=== PATIENT | female | born 1980 | race Caucasian/White ===

== ENCOUNTER 2019-03-10 20:25 | Emergency (ER) | payer SELFPAY ==
[~2019-03-10] VITALS: Ht 167 cm; Wt 74.0 kg
[~2019-03-10 20:25] MED LIST: HYDR-3454 PO
--- NOTE | 2019-03-10 20:39 | ED Psychosocial ---
General Stated Complaint: MENTAL HEALTH EVAL Source: patient Exam Limitations: no limitations History of Present Illness Date Seen by Provider: Mar 10, 2019 Time Seen by Provider: 20:25 Initial Comments The patient is a 39-year-old female who presents for evaluation of depression and feeling overwhelmed. She states that she has 2 children age 16 and 9 were being watched by her aunt area she states that her left her today. She says that she has a history of depression and years ago was prescribed Prozac but could not tolerate the medication and stopped taking it and never saw another physician about it. She says that life has been overwhelming lately and she is had a lot of anxiety and depression. She has been having suicidal thoughts but has no specific plan. She denies any homicidal thoughts. She is alert and oriented 4, appears anxious and tearful, but is in no distress at this time. She mentions that after her left she was having a small amount chest discomfort but that has gone away now. She denies taking any current prescription medications and also denies any previous suicide attempts or psyc hiatric admission. Timing/Duration: just prior to arrival Severity: moderate Associated Symptoms: suicidal ideation Allergies and Home Medications Allergies Coded Allergies: Sulfa (Sulfonamide Antibiotics) (Unverified Allergy, Unknown, HIVES, 03/15/14) Home Medications Hydrocodone Bit/Acetaminophen 1 Each Tablet, 1 TAB PO Q4H PRN for PAIN Prescribed by: TREVOR ANGUIANO on 03/22/14 1107 Patient Home Medication List Home Medication List Reviewed: Yes Review of Systems Constitutional: no symptoms reported EENTM: no symptoms reported Respiratory: no symptoms reported Cardiovascular: chest pain (cp earlier, none currently) Gastrointestinal: no symptoms reported Genitourinary: no symptoms reported : No Musculoskeletal: no symptoms reported Skin: no symptoms reported Psychiatric/Neurological: Anxiety, Depressed All Other Systems Reviewed Negative Unless Noted: Yes Past Mbzwkjy-Qttcsp-Doannz Hx Past Med/Social Hx: Reviewed Nursing Past Med/Soc Hx Patient Social History Recent Foreign Travel: No Contact w/Someone Who Travel: No Physical Exam Vital Signs - First Documented 03/10/19 20:30 Temp 36.9 Pulse 88 Resp 20 B/P (MAP) 141/77 (98) Pulse Ox 100 O2 Delivery Room Air Capillary Refill : Height, Weight, BMI Height: 5'7.00" Weight: 160lbs. oz. 72.882796tm; BMI Method: General Appearance: WD/WN, no apparent distress, other (appears anxious, tearful) HEENT: PERRL/EOMI, normal ENT inspection Neck: non-tender, full range of motion, normal inspection Respiratory: lungs clear, normal breath sounds, no respiratory distress, no accessory muscle use Cardiovascular: regular rate, rhythm, no edema, no JVD Gastrointestinal: normal bowel sounds, non tender, soft Extremities: normal range of motion, non-tender, no pedal edema Neurologic/Psychiatric: compliance review officer II-XII nml as tested, no motor/sensory deficits, alert, normal mood/affect, oriented x 3 Behavior/Eye Contact: good eye contact Skin: normal color, warm/dry Progress/Results/Core Measures Results/Orders Lab Results Laboratory Tests Test 03/10/19 20:40 03/10/19 20:45 Range/Units White Blood Count 5.5 4.3-11.0 10^3/uL Red Blood Count 4.83 4.35-5.85 10^6/uL Hemoglobin 10.2 L 11.5-16.0 G/DL Hematocrit 34 L 35-52 % Mean Corpuscular Volume 70 L 80-99 FL Mean Corpuscular Hemoglobin 21 L 25-34 PG Mean Corpuscular Hemoglobin Concent 30 L 32-36 G/DL Red Cell Distribution Width 18.2 H 10.0-14.5 % Platelet Count 151 130-400 10^3/uL Mean Platelet Volume 7.4-10.4 FL Neutrophils (%) (Auto) 63 42-75 % Lymphocytes (%) (Auto) 29 12-44 % Monocytes (%) (Auto) 7 0-12 % Eosinophils (%) (Auto) 1 0-10 % Basophils (%) (Auto) 0 0-10 % Neutrophils # (Auto) 3.5 1.8-7.8 X 10^3 Lymphocytes # (Auto) 1.6 1.0-4.0 X 10^3 Monocytes # (Auto) 0.4 0.0-1.0 X 10^3 Eosinophils # (Auto) 0.0 0.0-0.3 10^3/uL Basophils # (Auto) 0.0 0.0-0.1 10^3/uL Sodium Level 135 135-145 MMOL/L Potassium Level 3.4 L 3.6-5.0 MMOL/L Chloride Level 97 L 98-107 MMOL/L Carbon Dioxide Level 23 21-32 MMOL/L Anion Gap 15 H 5-14 MMOL/L Blood Urea Nitrogen 5 L 7-18 MG/DL Creatinine 0.70 0.60-1.30 MG/DL Estimat Glomerular Filtration Rate > 60 BUN/Creatinine Ratio 7 Glucose Level 101 70-105 MG/DL Calcium Level 9.1 8.5-10.1 MG/DL Corrected Calcium 8.7 8.5-10.1 MG/DL Total Bilirubin 0.5 0.1-1.0 MG/DL Aspartate Amino Transf (AST/SGOT) 15 5-34 U/L Alanine Aminotransferase (ALT/SGPT) 9 0-55 U/L Alkaline Phosphatase 111 40-136 U/L Total Protein 8.1 6.4-8.2 GM/DL Albumin 4.5 3.2-4.5 GM/DL Salicylates Level < 0.3 L 5.0-20.0 MG/DL Acetaminophen Level < 10 L 10-30 UG/ML Serum Alcohol < 10 <10 MG/DL Urine Color YELLOW Urine Clarity CLOUDY Urine pH 6.0 5-9 Urine Specific Earling 1.025 H 1.016-1.022 Urine Protein NEGATIVE NEGATIVE Urine Glucose (UA) NEGATIVE NEGATIVE Urine Ketones NEGATIVE NEGATIVE Urine Nitrite NEGATIVE NEGATIVE Urine Bilirubin 1+ H NEGATIVE Urine Urobilinogen 1.0 NORMAL MG/DL Urine Leukocyte Esterase 2+ H NEGATIVE Urine RBC (Auto) NEGATIVE NEGATIVE Urine RBC NONE /HPF Urine WBC 10-25 H /HPF Urine Squamous Epithelial Cells 10-25 H /HPF Urine Crystals NONE /LPF Urine Bacteria MODERATE H /HPF Urine Casts NONE /LPF Urine Mucus NONE /LPF Urine Trichomonas FEW H /HPF Urine Culture Indicated YES Urine Test NEGATIVE NEGATIVE Urine Opiates Screen NEGATIVE NEGATIVE Urine Oxycodone Screen NEGATIVE NEGATIVE Urine Methadone Screen NEGATIVE NEGATIVE Urine Propoxyphene Screen NEGATIVE NEGATIVE Urine Barbiturates Screen NEGATIVE NEGATIVE Ur Tricyclic Antidepressants Screen NEGATIVE NEGATIVE Urine Phencyclidine Screen NEGATIVE NEGATIVE Urine Amphetamines Screen NEGATIVE NEGATIVE Urine Methamphetamines Screen NEGATIVE NEGATIVE Urine Benzodiazepines Screen NEGATIVE NEGATIVE Urine Cocaine Screen NEGATIVE NEGATIVE Urine Cannabinoids Screen POSITIVE H NEGATIVE My Orders Orders - WOJCIECH GAO DO Ua Culture If Indicated (03/10/19 20:30) Cbc With Automated Diff (03/10/19 20:30) Comprehensive Metabolic Panel (03/10/19 20:30) Alcohol (03/10/19 20:30) Drug Screen Stat (Urine) (03/10/19 20:30) Acetaminophen (03/10/19 20:30) Salicylate (03/10/19 20:30) Ekg Tracing (03/10/19 20:30) Hcg,Qualitative Urine (03/10/19 20:30) Bh Status Checks/Observation Q15M (03/10/19 20:30) Suicide Precautions (03/10/19 20:49) Disposal Tray (Paper/Plastic) (03/10/19 20:49) Urine Culture (03/10/19 20:45) Metronidazole Tablet (Flagyl Tablet) (03/10/19 22:00) Ondansetron Oral Dissolve Tab (Zofran (03/10/19 21:50) Potassium Chloride (Tablet) (K Dur Table (03/10/19 22:00) Metronidazole Tablet (Flagyl Tablet) (03/10/19 21:47) Alprazolam Tablet (Xanax Tablet) (03/10/19 23:15) Medications Given in ED Current Medications Medications Dose Ordered Sig/Marielle Route Start Time Stop Time Status Last Admin Dose Admin Metronidazole 2,000 mg ONCE ONCE PO 03/10/19 22:00 03/10/19 22:01 DC 03/10/19 22:28 2,000 MG Potassium Chloride 40 meq ONCE ONCE PO 03/10/19 22:00 03/10/19 22:01 DC 03/10/19 22:29 40 MEQ Vital Signs/I&O 03/10/19 03/10/19 20:30 23:03 Temp 36.9 Pulse 88 76 Resp 20 18 B/P (MAP) 141/77 (98) 139/64 Pulse Ox 100 100 O2 Delivery Room Air Room Air Progress Progress Note : Progress Note @2135 - Patient being evaluated by mental health professional on laptop at this time. @2305 - the patient does not have a specific suicidal plan and has been assessed by the mental health professional. The patient has signed a safety contract and will be discharged home. The patient is denying that she wants to harm herself at present. She will go home with a limited prescription for Xanax. Patient advised to return to the emergency Department immediately for new or worsening symptoms. The patient expresses verbal understanding and agreement with the plan. Comment Normal sinus rhythm, rate of 75, normal axis, no acute ischemic findings noted, no STEMI, reviewed and interpreted by myself Departure Impression Primary Impression: Depression Disposition: 01 HOME, SELF-CARE Condition: Stable Departure-Patient Inst. Referrals: NO,LOCAL PHYSICIAN (PCP) Primary Care Physician [facility] Patient Instructions: Depression, Suicide Prevention Add. Discharge Instructions: Return to the emergency Department immediately for having thoughts of harming herself. Take the prescribed medicine as directed. Follow-up with your doctor and/or the therapist provided in the next 1-2 days. Scripts Alprazolam (Xanax) 0.5 Mg Tablet 0.5 MG PO Q6H PRN for ANXIETY for 3 Days, #12 TAB Prov: WOJCIECH GAO DO 03/10/19 WOJCIECH GAO DO Mar 10, 2019 20:39
[2019-03-10 20:50] LABS: HEMATOCRIT 34 % (35-52); HEMOGLOBIN 10.2 G/DL (11.5-16.0); MEAN CORPUSCULAR HEMOGLOBIN 21 PG (25-34); MEAN CORPUSCULAR HGB CONC 30 G/DL (32-36); MEAN CORPUSCULAR VOLUME 70 FL (80-99); PLATELET COUNT 151 10^3/uL (130-400); RED CELL DISTRIBUTION WIDTH 18.2 % (10.0-14.5); WHITE BLOOD COUNT 5.5 10^3/uL (4.3-11.0)
[2019-03-10 20:51] LABS: BASOPHILS % (AUTO) 0 % (0-10); EOSINOPHILS % (AUTO) 1 % (0-10); LYMPHOCYTES # (AUTO) 1.6 X 10^3 (1.0-4.0); LYMPHOCYTES % (AUTO) 29 % (12-44); MONOCYTES # (AUTO) 0.4 X 10^3 (0.0-1.0); MONOCYTES % (AUTO) 7 % (0-12); NEUTROPHILS # (AUTO) 3.5 X 10^3 (1.8-7.8); NEUTROPHILS % (AUTO) 63 % (42-75)
[2019-03-10 21:02] LABS: HCG,QUALITATIVE URINE NEGATIVE (NEGATIVE)
[2019-03-10 21:08] LABS: ALANINE AMINOTRANSFERASE 9 U/L (0-55); ALBUMIN 4.5 GM/DL (3.2-4.5); ALKALINE PHOSPHATASE 111 U/L (40-136); BILIRUBIN,TOTAL 0.5 MG/DL (0.1-1.0); BUN/CREATININE RATIO 7; CALCIUM 9.1 MG/DL (8.5-10.1); CARBON DIOXIDE 23 MMOL/L (21-32); CHLORIDE 97 MMOL/L (98-107); GFR ESTIMATED > 60; GLUCOSE 101 MG/DL (70-105); POTASSIUM 3.4 MMOL/L (3.6-5.0); SALICYLATE < 0.3 MG/DL (5.0-20.0); SODIUM 135 MMOL/L (135-145); TOTAL PROTEIN 8.1 GM/DL (6.4-8.2)
[2019-03-10 21:09] LABS: ACETAMINOPHEN < 10 UG/ML (10-30)
[2019-03-10 21:10] LABS: AMPHETAMINE SCREEN, URINE NEGATIVE (NEGATIVE); BARBITURATE SCREEN URINE NEGATIVE (NEGATIVE); BENZODIAZEPINES SCREEN URINE NEGATIVE (NEGATIVE); CANNABINOID SCREEN, URINE POSITIVE (NEGATIVE); COCAINE SCREEN URINE NEGATIVE (NEGATIVE); METHADONE STAT NEGATIVE (NEGATIVE); METHAMPHETAMINE SCREEN URINE S NEGATIVE (NEGATIVE); OPIATE SCREEN URINE NEGATIVE (NEGATIVE); OXYCODONE STAT NEGATIVE (NEGATIVE); PROPOXYPHENE STAT NEGATIVE (NEGATIVE); TRICYCLIC ANTIDEPRESSANTS SCRE NEGATIVE (NEGATIVE)
[2019-03-10 21:15] LABS: CLARITY,URINE CLOUDY; COLOR,URINE YELLOW; GLUCOSE, URINE (UA) NEGATIVE (NEGATIVE); KETONES,URINE NEGATIVE (NEGATIVE); NITRITE,URINE NEGATIVE (NEGATIVE); PROTEIN,URINE NEGATIVE (NEGATIVE)
[2019-03-10 21:16] LABS: BACTERIA,URINE MODERATE /HPF; BILIRUBIN,URINE 1+ (NEGATIVE); LEUKOCYTE ESTERASE ,URINE 2+ (NEGATIVE)
[2019-03-10 21:17] LABS: TRICHOMONAS,URINE FEW /HPF
[2019-03-10] MEDS ORDERED: metroNIDAZOLE 500 MG (FLAGYL) TAB ONE (21:47)
[2019-03-10] MEDS ORDERED: ONDANSETRON 4 MG (ZOFRAN) ORAL DISSOLVE TAB PO STA (21:50)
[2019-03-10] MEDS ORDERED: KCL 20 MEQ TAB (K-DUR) PO ONE (22:00)
[2019-03-10] MEDS ORDERED: metroNIDAZOLE 250 MG (FLAGYL) TAB PO ONE (22:00)
[2019-03-10 23:03] VITALS: BP 139/64
[2019-03-10] MEDS ORDERED: ALPRAZolam 0.5 MG (XANAX) TAB ONE (23:06)
[2019-03-10] MEDS ORDERED: ALPR0.5T PO (23:13)
[2019-03-10] MEDS ORDERED: ALPRAZolam 1 MG (XANAX) TAB PO ONE (23:15)
== END 2019-03-10 23:22 | disposition home or self-care (01) ==
LOC: EDUNIT# 20:25 → ER FS 20:27
DX: F32.9 Major depressive disorder, single episode, unspecified (principal); F41.9 Anxiety disorder, unspecified; Z88.2 Allergy status to sulfonamides
CPT/HCPCS: 36415; 80053; 80306; 80320; 80329; 81000; 84703; 85025; 87088; 93005

== ENCOUNTER 2021-01-02 20:48 | Emergency (ER) | payer MEDICAID, OTHER ==
[~2021-01-02] VITALS: Ht 170.2 cm; Wt 68.0 kg
[~2021-01-02 20:48] MED LIST changes: +ALPR0.5T PO
[2021-01-02 20:55] VITALS: BP 162/79
--- NOTE | 2021-01-02 20:55 | ED Lower Extremity ---
General Stated Complaint: FALL;R FOOT PAIN History of Present Illness Date Seen by Provider: Jan 02, 2021 Time Seen by Provider: 20:55 Initial Comments 40-year-old female presents with pain in her right foot. Patient reports she fell through some of pallets this afternoon. That the pain is on the lateral aspect of the right foot. She does have some mild swelling. She has difficulty bearing weight. She had some home crutches and is using it. Patient is approximately 5 months . She did not fall and did not have any abdominal trauma. Her only complaint is a right foot pain. Allergies and Home Medications Allergies Coded Allergies: Sulfa (Sulfonamide Antibiotics) (Unverified Allergy, Unknown, HIVES, 03/15/14) Home Medications Alprazolam 0.5 Mg Tablet, 0.5 MG PO Q6H PRN for ANXIETY Prescribed by: WOJCIECH GAO on 03/10/19 2063 Hydrocodone Bit/Acetaminophen 1 Each Tablet, 1 TAB PO Q4H PRN for PAIN Prescribed by: TREVOR ANGUIANO on 03/22/14 1104 Patient Home Medication List Home Medication List Reviewed: Yes Review of Systems Constitutional: no symptoms reported EENTM: no symptoms reported Respiratory: no symptoms reported Cardiovascular: no symptoms reported Gastrointestinal: no symptoms reported Musculoskeletal: see HPI Skin: see HPI Psychiatric/Neurological: No Symptoms Reported Past Rvplupy-Eobiix-Kxjhem Hx Past Medical History Surgeries: Yes Respiratory: No Cardiac: No Neurological: No Genitourinary: No Gastrointestinal: No Musculoskeletal: No Endocrine: No HEENT: No Cancer: No Psychosocial: Yes Depression Integumentary: No Blood Disorders: No Physical Exam Vital Signs Vital Signs - First Documented 01/02/21 20:55 Temp 36.7 Pulse 83 Resp 19 B/P (MAP) 162/79 (106) O2 Delivery Room Air Capillary Refill : Height, Weight, BMI Height: 5'7.00" Weight: 160lbs. oz. 72.722334ab; 26.00 BMI Method: General Appearance: other (Obvious discomfort) Respiratory: lungs clear, normal breath sounds Gastrointestinal: non tender, soft Hips: bilateral hip non-tender Legs: bilateral leg non-tender Knees: bilateral knee non-tender Ankles: bilateral ankle non-tender Feet: left foot non-tender, left foot normal inspection, left foot normal range of motion; right foot pain (Lateral aspect of the fifth meta tarsal), right foot soft tissue tenderness, right foot swelling Progress/Results/Core Measures Results/Orders My Orders Orders - BINDU REED DO Foot 3 View Right (01/02/21 20:56) Steplite (01/02/21 21:30) Vital Signs/I&O 01/02/21 20:55 Temp 36.7 Pulse 83 Resp 19 B/P (MAP) 162/79 (106) O2 Delivery Room Air Diagnostic Imaging Diagonstic Imaging: Xray Comments FOOT 3 VIEW RIGHT CLINICAL HISTORY: Right foot pain. COMPARISON: None. TECHNIQUE: 3 views of the right foot. FINDINGS: There is a lucency noted at the base of the right 5th metatarsal. No evidence of fracture is seen in the right foot. Alignment is anatomic. The imaged joint spaces are preserved. Soft tissue edema is seen along the lateral aspect of the right foot adjacent to the base of the right 5th metatarsal. IMPRESSION: Lucency at the base of the right 5th metatarsal, which may represent Luo fracture. Recommend correlation with point tenderness. Departure Impression Primary Impression: Closed fracture of tarsal and metatarsal bones of right foot Qualified Codes: S92.201A - Fracture of unspecified tarsal bone(s) of right foot, initial encounter for closed fracture; S92.301A - Fracture of unspecified metatarsal bone(s), right foot, initial encounter for closed fracture Disposition: 01 HOME, SELF-CARE Condition: Stable Departure-Patient Inst. Referrals: NO,LOCAL PHYSICIAN (PCP/Family) Primary Care Physician Patient Instructions: Walking Boot, Foot Fracture ED Add. Discharge Instructions: Tylenol as needed for pain 4% topical lidocaine with menthol as directed on package as needed for pain Elevate foot when not ambulating Please limit ambulation and only ambulate with walking boot Follow-up with your primary care provider and orthopedic surgeon in the next 2 to 3 days for further outpatient management BINDU REED DO Jan 02, 2021 20:55
--- NOTE | 2021-01-02 21:18 | Diagnostic Imaging Report ---
CLINICAL HISTORY: Right foot pain. COMPARISON: None. TECHNIQUE: 3 views of the right foot. FINDINGS: There is a lucency noted at the base of the right 5th metatarsal. No evidence of fracture is seen in the right foot. Alignment is anatomic. The imaged joint spaces are preserved. Soft tissue edema is seen along the lateral aspect of the right foot adjacent to the base of the right 5th metatarsal. IMPRESSION: Lucency at the base of the right 5th metatarsal, which may represent Luo fracture. Recommend correlation with point tenderness. Dictated by: Dictated on workstation # [id number]
== END 2021-01-02 21:45 | disposition home or self-care (01) ==
LOC: EDUNIT# 20:48 → ER FS 20:50
DX: O9A.212 Injury, poisoning and certain other consequences of external causes complicating pregnancy, second trimester (principal); S92.201A Fracture of unspecified tarsal bone(s) of right foot, initial encounter for closed fracture; S92.351A Displaced fracture of fifth metatarsal bone, right foot, initial encounter for closed fracture; Z3A.20 20 weeks gestation of pregnancy; W20.8XXA Other cause of strike by thrown, projected or falling object, initial encounter
CPT/HCPCS: 73630; 99282; L2114

== ENCOUNTER → 2021-06-12 | Emergency (ER) | payer MEDICAID ==
[~2021-06-12] MED LIST changes: +ANTACID SUSP 30 ML UDC (MYLANTA) PO ONE; +LACTATED RINGERS 1,000 ML IV STA; +LIDOCAINE 2% VISCOUS 15 ML UDC PO ONE
--- NOTE | 2021-06-12 12:53 | Diagnostic Imaging Report ---
INDICATION: Right-sided chest pain. TIME OF EXAM: 10:20 AM No prior studies are available for comparison. FINDINGS: The heart size is normal. The pulmonary vascularity is unremarkable. The lungs are clear. No infiltrate, effusion or pneumothorax is detected. IMPRESSION: No acute cardiopulmonary process is detected. Dictated by: Dictated on workstation # [id number]
== END ==
LOC: EDUNIT# 09:44 → ER FS 09:46
DX: R07.9 Chest pain, unspecified (principal)
CPT/HCPCS: 71046